=== PATIENT | female | born 1990 | race Hispanic/Latino ===

== ENCOUNTER 2017-03-29 05:51 | Day surgery (SDC) | payer BC ==
[~2017-03-29 05:51] MED LIST: MARCAINE 0.25% INFILTRATI ONE; NACL 0.9% IR ONE
[2017-03-29] MEDS ORDERED: ANCEF/STERILE WATER 2 GM/20 ML IV NR (06:00)
[2017-03-29] MEDS ORDERED: NACL BACTERIOSTATIC INFILTRATI ONE (06:34)
[2017-03-29] MEDS ORDERED: MARCAINE 0.25% INFILTRATI ONE ×2 (07:17→08:42)
[2017-03-29] MEDS ORDERED: SUBLIMAZE ONE (07:18)
[2017-03-29] MEDS ORDERED: DIPRIVAN 10 MG/ML IV ONE (07:18)
[2017-03-29] MEDS ORDERED: XYLOCAINE MPF 2% ONE (07:19)
[2017-03-29] MEDS ORDERED: ZOFRAN ONE (07:19)
[2017-03-29] MEDS ORDERED: ZEMURON IV ONE (07:19)
[2017-03-29] MEDS ORDERED: NEOSTIGMINE ONE (07:19)
[2017-03-29] MEDS ORDERED: DECADRON ONE (07:19)
[2017-03-29] MEDS ORDERED: ROBINUL ONE ×2 (07:19)
--- NOTE | 2017-03-29 07:33 | Anesthesia Consultation ---
Anesthesia Consult and Med Hx Date of service: 03/29/17 - Airway Anesthetic Teeth Evaluation: Good ROM Head & Neck: Adequate Mental/Hyoid Distance: Adequate Mallampati Class: Class I Intubation Access Assessment: Good - Pulmonary Exam CTA: Yes - Cardiac Exam Cardiac Exam: RRR - Pre-Operative Health Status ASA Pre-Surgery Classification: ASA1 Proposed Anesthetic Plan: General - Central Nervous System Hx Psychiatric Problems: No - Other Systems Hx Alcohol Use: No Hx Substance Use: No Hx Cancer: No Hx Obesity: Yes
--- NOTE | 2017-03-29 07:34 | Anesthesia Day of Surgery ---
Anesthesia Day of Surgery - Day of Surgery Patient Examined: Yes Patient H&P Reviewed: Yes Patient is NPO: Yes
[2017-03-29] MEDS ORDERED: PEPCID IV NR (08:00)
[2017-03-29] MEDS ORDERED: VERSED IV NR (08:00)
[2017-03-29] MEDS ORDERED: LACTATED RINGERS 1,000 ML IV SCH (08:00)
[2017-03-29] MEDS ORDERED: OMNIPAQUE 300 MG/50 ML (CATH LAB) IV ONE (09:01)
[2017-03-29] MEDS ORDERED: NACL 0.9% IR ONE ×2 (09:02→09:17)
[2017-03-29] MEDS ORDERED: DILAUDID ONE (09:09)
[2017-03-29] MEDS ORDERED: TORADOL ONE (09:19)
--- NOTE | 2017-03-29 09:33 | Operative Report ---
Operative Report Operative Report: Date of procedure: 03/29/2017 Pre-operative diagnosis: Biliary colic, fatty liver, elevated LFTs Post-operative diagnosis: Same Procedure name(s): Laparoscopic cholecystectomy Surgeon: Ross Day MD Rim Fire Priming Tool Setter: Felipe Cuadra M.D. Anesthesia: General EBL: Minimal Complications: None Instrument Count: correct Indications: This is a 26-year-old female with a history of right upper quadrant pain. Workup was consistent with a biliary etiology. She was offered the above named procedures a possible diagnostic and therapeutic modality. The risks and benefits to discuss until all questions were answered. She was subsequently brought to the OR. Findings: Filling defects within the common bile duct, these were nonobstructing. Procedure: We reviewed the informed consent. We placed the patient supine upon the table. After adequate anesthesia was reached, the patient was prepped and draped in usual sterile fashion. A 5 mm incision was made the level of umbilicus and a Veress needle was placed at this position. The abdomen was then insufflated to 15 mmHg and a 5 mm trocar was placed through the umbilical incision. We inserted the camera at this time. Under direct vision and after infiltration of local anesthetic an 11 mm port was placed in the epigastric location. This was followed by placement of two five mm ports in the right upper quadrant. We identified the gallbladder and the fundus was grasped. This was retracted superiorly. We then grasped the infundibulum and retracted it laterally. At this time we dissected free the cystic duct infundibular junction until the triangle of Calot was clearly identified. Placed 2 clips distally on the cystic duct. And partially transected the duct at this point a 5 Indian pediatric catheter was in place with the lumen of the proximal portion of the cystic duct. Under fluoroscopic guidance injected radiopaque dye within the lumen and we were clearly able to see the biliary tree. The findings of which are noted above. We then placed 3 clips proximally the cystic duct and completely transected it. We placed 2 clips proximally on the cystic artery. We transected the cystic artery using electrocautery. We then dissected the gallbladder free from its fossa using electrocautery. This was placed in Endo Catch bag and removed the abdomen to be sent to pathology for further evaluation. We assured hemostasis at this time. We then evacuated the insufflation. We removed all ports and closed all port sites using a 4-0 Monocryl in a subcuticular fashion. The wounds were bandaged sterilely. The patient tolerated procedure well. They were taken to PACU in no apparent distress after extubation. In
--- NOTE | 2017-03-29 09:36 | Short Stay Summary ---
Short Stay Documentation Date of service: 03/29/17 - History H&P: obtained from office - Allergies and Medications Current Medications: Allergies No Known Allergies Allergy (Verified 03/25/17 11:06) Home Medications Medication Instructions Recorded Confirmed Last Taken Type No Known Home Medications [No 03/25/17 03/25/17 Unknown History Reported Home Medications] Active Medications Cefazolin Sodium (Ancef/Sterile Water 2 Gm/20 Ml) 2 gm IV PREOP NR Stop: 03/29/17 21:00 Lactated Ringer's (Lactated Ringers) 1,000 mls @ 125 mls/hr IV DIRECT CATA Midazolam HCl (Versed) 2 mg IV PREOP NR Stop: 03/29/17 23:59 - Brief post op/procedure progress note Date of procedure: 03/29/17 Pre-op diagnosis: biliary colic, elevated LFTs, fatty liver Post-op diagnosis: same Procedure: Laparoscopic cholecystectomy with cholangiogram Anesthesia: GETA Findings: Nonobstructing filling defect within the common bile duct Surgeon: FADY GONZALEZ Gun Profiler: FLORES BALTAZAR Estimated blood loss: minimal Pathology: list (gallbladder) Specimen disposition: to lab Condition: stable - Disposition Condition at discharge: Stable Disposition: DC-01 TO HOME OR SELFCARE Short Stay Discharge Plan Activity: no restrictions Diet: low fat Wound: keep clean and dry Follow up with: LAURA LU [Other] - 7 Days FADY GONZALEZ MD [Staff Physician] - 7 Days Prescriptions: oxyCODONE /ACETAMINOPHEN [Percocet 5/325] 1 tab PO Q6HR PRN #30 tablet PRN Reason: Pain
[2017-03-29] MEDS ORDERED: DILAUDID IV PRN (10:03)
[2017-03-29 10:58] VITALS: BP 117/70
[2017-03-29] MEDS ORDERED: ZOFRAN PO PRN (11:30)
--- NOTE | 2017-03-29 14:06 | Fluoroscopy Report ---
Operative cholangiogram. History: Gallstones. Findings: A single image demonstrates normal caliber of the biliary tree with no filling defects or other significant findings.
== END 2017-03-29 12:00 | disposition home or self-care (01) ==
LOC: OR 05:51
PROVIDERS: ATTEND Surgery
DX: K80.64 Calculus of gallbladder and bile duct with chronic cholecystitis without obstruction (principal); K76.0 Fatty (change of) liver, not elsewhere classified; E66.9 Obesity, unspecified; Z68.38 Body mass index [BMI] 38.0-38.9, adult
CPT/HCPCS: 47563; 74300; 81025; 88304; A4217; J0690; J1100; J1170; J1885; J2250; J2405; J2704; J2710; J3010; J7120; Q9967; Q0162